=== PATIENT | male | born 1995 | race Caucasian/White ===

== ENCOUNTER 2019-12-18 05:50 | Emergency (ER) | payer BC, SELFPAY ==
[2019-12-18 05:56] VITALS: BP 124/55; PULSE 108; RESP 20; TEMP 37.2; O2SAT 100
--- NOTE | 2019-12-18 06:04 | ED.FEVER ---
HPI - Fever General Chief Complaint: Fever Stated Complaint: FEVER Time Seen by Provider: 12/18/19 06:03 History of Present Illness HPI Narrative: Fever, nausea, vomiting, diarrhea, and cough since yesterday. Sudden onset. Not able to tolerate any fluids or solid food. highest measured temp was 99.2. He does have mild associated epigastric pain and myalgias. No SOB, wheezing, weakness, dizziness. Related Data Allergies Allergy/AdvReac Type Severity Reaction Status Date / Time Penicillins Allergy Unknown Unknown Verified 12/18/19 06:00 Sulfa (Sulfonamide Allergy Unknown Unknown Verified 12/18/19 06:00 Antibiotics) Review of Systems Review of Systems: All systems reviewed & are unremarkable except as noted in HPI and below Constitutional: Constitutional: Reports chills, Reports fatigue and Reports fever(s) Eyes: Eyes: Denies change in vision ENT: Reports nasal congestion and Denies sore throat Cardiovascular: Cardiovascular: Denies chest pain Respiratory: Respiratory: Denies dyspnea Gastrointestinal: Gastrointestinal: Reports abdominal pain, Reports diarrhea, Reports nausea and Reports vomiting Genitourinary: Genitourinary: Denies hematuria and Denies dysuria Musculoskeletal: Musculoskeletal: Reports myalgias Neurologic: Denies headache(s), Denies numbness and Denies weakness [facility] Social History Social History Gender identity (if verbalized by the patient): Male Exam Const: General: no acute distress and alert; No healthy appearing Nutritional Appearance: thin Orientation/consciousness: patient oriented x3 HENMT: Ears: TM's normal bilaterally Face and sinus: normal facial exam Mouth: Yes dry mucous membranes Eyes: Conjunctivae: conjunctivae normal Pupils: Equal, round and reactive pupils present Neck: Neck: no lymphadenopathy Resp: Effort & Inspection: normal respiratory effort Auscultation: clear to auscultation bilaterally Cardio: Rate: regular rate Rhythm: regular rhythm GI: GI Palp: Yes Soft to palpation and No Tenderness to palpation present (GI) Skin: General skin exam: normal color Rashes: no rashes Wounds: no wounds Neuro: General: patient oriented x3, moves all extremities and no focal motor deficits Speech: normal speech Extrem: General: normal to inspection Course Vital Signs Vital signs: Vital Signs Temperature 37.2 C 12/18/19 05:56 Pulse Rate 108 H 12/18/19 05:56 Respiratory Rate 12/18/19 05:56 Blood Pressure 124/55 L 12/18/19 05:56 Pulse Oximetry 100 12/18/19 05:56 Temperature 37.2 C 12/18/19 05:56 Pulse Rate 108 H 12/18/19 05:56 Respiratory Rate 20 12/18/19 05:56 Blood Pressure 124/55 L 12/18/19 05:56 Pulse Oximetry 100 12/18/19 05:56 MDM - Fever MDM Narrative Medical decision making narrative: Symptoms are primarily GI, although he does complain of cough. Most likely is either influenza or viral gastroenteritis. Normal respiratory exam so pneumonia is unlikely. Will treat symptomatically and reassess. If positive for influenza he is within the time window where tamiflu could be helpful. Influenza screen negative. Most likely gastroenteritis. Feeling better and tolerating PO. Will discharge with zofran prescription. Differential Diagnosis Differential diagnosis: Likely gastroenteritis, community acquired pneumonia, viral infection and influenza Medical Records Attestation: I reviewed the patient's medical records. Lab Data Attestation: I reviewed the patient's lab results. Result diagrams: 12/18/19 07:02 12/18/19 07:02 Labs: Lab Results 12/18/19 12/18/19 12/18/19 Range/Units 07:02 07:02 07:16 WBC 11.9 H (4.5-10.0) K/mm3 RBC 5.26 (4.6-6.20) M/mm3 Hgb 15.0 (14.0-18.0) g/dL Hct 46.8 (42.0-52.0) % MCV 89.0 (80-100) fl MCH 28.5 (26-34) pg MCHC 32.1 (32-36) g/dl RDW 13.4 (11.5-14.5) % Plt
[2019-12-18] MEDS: SODIUM CHLORIDE 0.9% IV 1,000 ML 999 ML IV CONT ×2 (06:35→08:17)
[2019-12-18] MEDS: ONDANSETRON INJ 4 MG/2 ML VIAL IV PUSH (06:36)
[2019-12-18] MEDS: PANTOPRAZOLE SODIUM IV 40 MG VIAL IV PUSH (06:36)
[2019-12-18 07:12] LABS: Basophils Percent Auto 0.2 % (0.2-1.2); Eosinophils Percent Auto 0.1 % (0-4.4); Hematocrit 46.8 % (42.0-52.0); Immature Granulocyte Absolute 0.05 K/mm3 (0.00-0.031); Immature Granulocyte Percent A 0.4 % (0-0.5); Lymphocytes Absolute Auto 0.28 K/mm3 (0.9-3.2); Lymphocytes Percent Auto 2.4 % (18.3-44.2); Mean Corpuscular HGB Conc 32.1 g/dl (32-36); Mean Corpuscular Hemoglobin 28.5 pg (26-34); Mean Platelet Volume 10.4 fl (7.4-10.4); Monocytes Absolute Auto 0.6 K/mm3 (0.1-0.6); Neutrophils Absolute Auto 10.9 K/mm3 (1.3-6.7); Neutrophils Percent Auto 91.9 % (45.5-73.1); Platelet Count Result 296 k/mm3 (150-375); Red Blood Count 5.26 M/mm3 (4.6-6.20); Red Cell Distribution Width 13.4 % (11.5-14.5); White Blood Count 11.9 K/mm3 (4.5-10.0)
[2019-12-18 07:19] LABS: Alanine Aminotransferase 29 U/L (4-50); Albumin Level 4.2 g/dL (3.5-5.1); Alkaline Phosphatase 80 U/L (38-126); Aspartate Amino Transferase 22 U/L (17-59); Blood Urea Nitrogen 26 mg/dL (9-20); Calcium 8.7 mg/dL (8.4-10.2); Carbon Dioxide 28 mmol/L (22-30); Chloride 100 mmol/L (98-107); Estimated Glomerular Filt Rate > 60; Glucose 110 mg/dL (75-110); Lipase 34 U/L (23-300); Potassium 4.5 mmol/L (3.4-5.0); Sodium 136 mmol/L (137-145)
[2019-12-18 07:34] LABS: Add Urine Microscopic? YES; Appearance Urine Clear (Clear); Bilirubin Urine Negative (Negative); Blood Urine 1+ (Negative); Color Urine Yellow (Yellow); Glucose Urine UA Negative (Negative); Ketones Urine 1+ mg/dL (Negative); Leukocyte Esterase Ur Negative LEU/UL (Negative); Mucus Urine Heavy /lpf; Nitrate Urine Negative (Negative); Protein Urine 1+ mg/dL (Negative); Specific Grav Ur 1.031 (1.001-1.035); Squamous Epithelial Cell Urine Rare /hpf (Few); Urobilinogen Urine Negative mg/dL (<2.0); WBC Urine 0-3 /hpf
--- NOTE | 2019-12-31 09:41 | PC.NURSE ---
LATE ENTRY This note is being entered to document information to the patient's record. The following information was omitted on [12/18/2019], by [BRENDAN Arriola]. NS 1000mL infused with a stop time of 0920.
--- NOTE | 2020-01-02 13:42 | PC.NURSE ---
LATE ENTRY This note is being entered to document information to the patient's record. The following information was omitted on [12/18/2019], by [Kimi moulton RN]. 2nd bag of NS infused at 0930
== END 2019-12-18 09:15 | disposition home or self-care (01) ==
PROVIDERS: Emergency Provider Emergency Medicine
DX: K52.9 Noninfective gastroenteritis and colitis, unspecified (principal)
CPT/HCPCS: 36415; 80053; 81001; 83690; 85025; 87804; 96361; 96374; 96375; 99284; C9113; J2405; J7030

== ENCOUNTER 2022-08-08 17:39 | Emergency (ER) | payer SELFPAY ==
[2022-08-08 17:48] VITALS: BP 117/71; PULSE 83; RESP 16; TEMP 36.6; O2SAT 100
--- NOTE | 2022-08-08 18:09 | ED.GENADULT ---
HPI - General Adult General Chief complaint: Extremity Injury, Upper Stated complaint: L ARM/WRIST/HAND PAIN History of Present Illness HPI narrative: Patient is a 27-year-old male who presents to the [facility] via POV for an evaluation of a left hand injury that occurred 2 hours ago. 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 Patient also reports pain and swelling to the left hand and wrist. He reports his pain as constant and achy, throbbing, and sharp in nature. Pain improves when extremity is in the dependent position and worsens with movement. 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 Related Data Allergies Allergy/AdvReac Type Severity Reaction Status Date / Time Penicillins Allergy Unknown Unknown Verified 12/18/19 06:00 Sulfa (Sulfonamide Allergy Unknown Unknown Verified 12/18/19 06:00 Antibiotics) Review of Systems Review of Systems: Pertinent negatives: fever, chills, sweats, change in appetite, poor p.o. intake, malaise, calf tenderness, skin color changes, rash, warmth, numbness, tingling, loss of sensation, deformity, decreased range of motion, weakness, difficulty with ambulation/coordination, nausea, vomiting, lymphadenopathy, shortness of breath, chest pain, heart palpitations, and heart murmur. [facility] Social History Social History Gender identity (if verbalized by the patient): Male Exam Narrative: GENERAL: Well-appearing, well-nourished, and in no acute distress. HEAD: Normocephalic, atraumatic. NECK: Supple. No Lymphadenopathy or nuchal rigidity appreciated. CHEST: Bilateral lung palomo are clear to auscultation. No respiratory distress. No evidence of cough or pleuritic cp upon examination. HEART: Regular rate and rhythm. No murmur, gallop, or rub heard. EXTREMITIES: mild swelling and pain appreciated over dorsal aspect of left wrist. Mild left wrist pain elicited with all active/passive rom. No evidence of injury, decreased ROM, cyanosis, hematoma, laceration, abrasion, deformity, rash, or puncture. No evidence of point tenderness. No evidence of dislocation, ligament laxity, effusion, or pain at rest. Pulses palpable at 2+, strength 5/5, and cap refill < 3 seconds in affected extremity. DTRs normal. Gait normal. SKIN: Warm, dry, no rash. NEURO: No focal deficits. Alert and oriented x3. Course Course Level of Care: Express Care Visit Vital Signs Vital signs: Vital Signs Temperature 97.9 F 08/08/22 17:48 Pulse Rate 83 08/08/22 17:48 Respiratory Rate 16 08/08/22 17:48 Blood Pressure 117/71 08/08/22 17:48 Pulse Oximetry 100 08/08/22 17:48 Oxygen Delivery Room Air 08/08/22 17:48 Temperature 97.9 F 08/08/22 17:48 Pulse Rate 83 08/08/22 17:48 Respiratory Rate 16 08/08/22 17:48 Blood Pressure 117/71 08/08/22 17:48 Pulse Oximetry 100 08/08/22 17:48 Oxygen Delivery Room Air 08/08/22 17:48 Medical Decision Making Differential Diagnosis Differential Diagnosis: Sprain, strain, cellulitis, open fracture, closed fracture, gout Vital Signs Vital Signs: Vital Signs Temperature 97.9 F 08/08/22 17:48 Pulse Rate 83 08/08/22 17:48 Respiratory Rate 08/08/22 17:48 Blood Pressure 117/71 08/08/22 17:48 Pulse Oximetry 100 08/08/22 17:48 Oxygen Delivery Room Air 08/08/22 17:48 Temperature 97.9 F 08/08/22 17:48 Pulse Rate 83 08/08/22 17:48 Respiratory Rate 08/08/22 17:48 Blood Pressure 117/71 08/08/22 17:48 Pulse Oximetry 100 08/08/22 17:48 Oxygen Delivery Room Air 08/08/22 17:48 Reviewed Critical Care Time Critical Care Time Critical Care Time: No Discharge Plan Discharge Clinical Impression: Strain of left wrist Qualifiers: Encounter type: initial encounter Qualified Code(s): S66.912A - Strain of unspecified
== END 2022-08-08 18:23 | disposition home or self-care (01) ==
PROVIDERS: Emergency Provider Nurse Practitioner Family
DX: S66.912A Strain of unspecified muscle, fascia and tendon at wrist and hand level, left hand, initial encounter (principal); X58.XXXA Exposure to other specified factors, initial encounter; Y99.0 Civilian activity done for income or pay
CPT/HCPCS: 99212; G0463

== ENCOUNTER 2025-04-21 18:40 | Emergency (ER) | payer OTHER, SELFPAY ==
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
[2025-04-21 18:40] VITALS: BP 137/78; PULSE 97; RESP 18; TEMP 36.8; O2SAT 100
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
--- OUTSIDE RECORDS SUMMARY | 2025-04-21 19:37 | XMS_ITS | Referral Summary ---
Author Organization [address] [address] Care Team Providers Care Diamond Sizer And Sorter Name Role Phone No, Physician Primary Care Provider [phone] Encounters Date Type Department Care Team Description 01/24/2025 9:00 AM MULTI PURPOSE MACHINE OPERATOR Office Visit [facility] Care at [address] [address] Dina White NP Influenza A (Primary Dx) from Last 3 Months Allergies Active Allergy Reactions Criticality Noted Date Comments Penicillins Hives Medium 03/02/2023 Sulfa (Sulfonamide Antibiotics) Other (See comments) Low 03/02/2023 Reaction: Other Medications No known medications Active Problems Problem Noted Date Diagnosed Date 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 Social History Tobacco Use Types Packs/Day Years Used Date Smoking Tobacco: Never Assessed Sex and Gender Information Value Date Recorded Sex Assigned at Not on file Legal Sex Male 11:51 AM MULTI PURPOSE MACHINE OPERATOR Gender Identity Not on file Sexual Orientation Not on file Last Filed Vital Signs Vital Sign Reading Time Taken Comments Blood Pressure 126/78 01/24/2025 8:50 AM MULTI PURPOSE MACHINE OPERATOR Pulse 111 01/24/2025 8:50 AM MULTI PURPOSE MACHINE OPERATOR Temperature 38.1 C (100.5 F) 01/24/2025 8:50 AM MULTI PURPOSE MACHINE OPERATOR Respiratory Rate 20 01/24/2025 8:50 AM MULTI PURPOSE MACHINE OPERATOR Oxygen Saturation 99% 01/24/2025 8:50 AM MULTI PURPOSE MACHINE OPERATOR Inhaled Oxygen Concentration - - Weight 65.8 kg (145 lb) 01/24/2025 8:50 AM MULTI PURPOSE MACHINE OPERATOR Height 180.3 cm (5' 11) 03/02/2023 8:22 AM CDT Body Mass Index 20.22 03/02/2023 8:22 AM CDT Plan of Treatment Not on file Procedures Procedure Name Priority Date/Time Associated Diagnosis Comments POC INFLUENZA A/B, COVID-19 ANTIGEN Routine 01/24/2025 8:56 AM MULTI PURPOSE MACHINE OPERATOR Influenza A from Last 3 Months Results * (ABNORMAL) POC Influenza A/B, COVID-19 antigen (01/24/2025 8:56 AM MULTI PURPOSE MACHINE OPERATOR) Influenza A Ag, POC Positive(A) Negative [facility] Influenza B Ag, POC Negative Negative [facility] COVID-19 Ag POC Presumptive Negative Presumptive Negative, Invalid [facility] Nasal 01/24/2025 8:56 AM MULTI PURPOSE MACHINE OPERATOR Dina White NP POINT OF CARE TEST ORDERABLES Final Result [facility] [address] [place] [address], [facility] from Last 3 Months Insurance Care Teams Diamond Sizer And Sorter Relationship Specialty Start Date End Date No, Physician PCP - General 03/02/23
--- OUTSIDE RECORDS SUMMARY | 2025-04-21 19:37 | XMS_ITS | Clinical Summary ---
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 Social History Tobacco Use Types Packs/Day Years Used Date Smoking Tobacco: Never Smokeless Tobacco: Never Alcohol Use Standard Drinks/Week Comments Yes 0 (1 standard drink = 0.6 oz pur e alcohol) occasionally Sexually Active Control Partners Comments Yes Oral Contraceptive Sex and Gender Information Value Date Recorded Sex Assigned at Not on file Legal Sex Male 8:30 PM CDT Gender Identity Not on file Sexual Orientation Not on file Plan of Treatment Health Maintenance Due Date Last Done Comments Hepatitis C Virus (HCV) Screening 1995 Influenza Immunization (#1) 2024 SARS-COV-2 Immunization ( season) 2024 Respiratory Syncytial Virus (RSV) Immunization (Adult) (1 - 1-dose 75+ series) 2070 Hepatitis B Immunization Completed 995, 1995, 1995 DTaP/Tdap/Td Immunization Discontinued 2008, 02/05/1999, 04/26/1996, Additional history exists TdaP Immunization Completed 02/27/2009 Meningococcal Immunization (ACWY) Aged Out No longer eligible based on patient's age to complete this topic Pneumococcal Immunization Combined Aged Out No longer eligible based on patient's age to complete this topic Rotavirus Immunization Aged Out No lo nger eligible based on patient's age to complete this topic Goals Goal Patient Goal Type Associated Problems Recent Progress Patient-Stated? Author Patients will report less conflict in relationship with significant other. Behavioral Health Yes Teddy Hernandez, INTRANET DEVELOPER Note: Learn how to deal w/ disagreements better Insurance [facility] Care Teams Rn Gastroenterology Relationship Specialty Start Date End Date Provider, None ID PCP - General 08/30/19
--- OUTSIDE RECORDS SUMMARY | 2025-04-21 19:37 | XMS_ITS | Clinical Summary ---
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 Encounters Date Type Department Care Team Description 01/24/2025 9:00 AM ALMOND GRINDER Office Visit [facility] Care at [address] [address] Dina White NP Influenza A (Primary Dx) from Last 3 Months Social History Tobacco Use Types Packs/Day Years Used Date Smoking Tobacco: Never Assessed Sex and Gender Information Value Date Recorded Sex Assigned at Not on file Legal Sex Male 11:51 AM ALMOND GRINDER Gender Identity Not on file Sexual Orientation Not on file Obstetrics History Last Filed Vital Signs Vital Sign Reading Time Taken Comments Blood Pressure 126/78 01/24/2025 8:50 AM ALMOND GRINDER Pulse 111 01/24/2025 8:50 AM ALMOND GRINDER Temperature 38.1 C (100.5 F) 01/24/2025 8:50 AM ALMOND GRINDER Respiratory Rate 20 01/24/2025 8:50 AM ALMOND GRINDER Oxygen Saturation 99% 01/24/2025 8:50 AM ALMOND GRINDER Inhaled Oxygen Concentration - - Weight 65.8 kg (145 lb) 01/24/2025 8:50 AM ALMOND GRINDER Height 180.3 cm (5' 11) 03/02/2023 8:22 AM CDT Body Mass Index 20.22 03/02/2023 8:22 AM CDT Plan of Treatment Health Maintenance Due Date Last Done Comments Depression Screening 1995 Hepatitis C Screening 1995 Varicella Vaccines (2 of 2 - 2-dose childhood series) 1999 01/27/1996 Regular Well Visit/Exam 18-64 2013 DTaP/Tdap/Td Vaccine (7 - Td or Tdap) 02/27/2019 02/27/2009, 02/05/1999, 04/26/1996, Additional history exists Influenza Vaccine (Season Ended) 2025 Hepatitis B Screening Completed 1995 , 1995, 1995 HPV Vaccines Aged Out No longer eligi ble based on patient's age to complete this topic Pneumococcal vaccine <65 Aged Out No longer eligible based on patient's age to complete this topic Procedures Procedure Name Priority Date/Time Associated Diagnosis Comments POC INFLUENZA A/B, COVID-19 ANTIGEN Routine 01/24/2025 8:56 AM ALMOND GRINDER Influenza A from Last 3 Months Results * (ABNORMAL) POC Influenza A/B, COVID-19 antigen (01/24/2025 8:56 AM ALMOND GRINDER) Influenza A Ag, POC Positive(A) Negative [facility] Influenza B Ag, POC Negative [facility] COVID-19 Ag POC Presumptive Negative Presumptive Negative, Invalid [facility] Nasal 01/24/2025 8:56 AM ALMOND GRINDER Dina White NP POINT OF CARE TEST ORDERABLES Final Result Performing Organization Address City/State/[facility] Co de Phone Number [facility] [address] [place] [address], [facility] from Last 3 Months Insurance Care Teams Costume Mistress Relationship Specialty Start Date End Date No, Physician PCP - General 03/02/23
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
[2025-04-21 20:15] VITALS: BP 138/62; PULSE 86; RESP 16; O2SAT 98
[2025-04-21 21:31] VITALS: BP 128/62; PULSE 73; RESP 17; O2SAT 100
[2025-04-21 23:08] VITALS: BP 128/62; PULSE 73; RESP 17; O2SAT 100
== END 2025-04-21 21:30 | disposition home or self-care (01) ==
PROVIDERS: Emergency Provider Physician Assistant
DX: S01.112A Laceration without foreign body of left eyelid and periocular area, initial encounter (principal); S01.81XA Laceration without foreign body of other part of head, initial encounter; W20.8XXA Other cause of strike by thrown, projected or falling object, initial encounter
CPT/HCPCS: 12002; 70450; 70486; 72125; 99284; J2003

== ENCOUNTER 2025-04-29 11:47 | Emergency (ER) | payer OTHER, SELFPAY ==
--- OUTSIDE RECORDS SUMMARY | 2025-04-29 11:48 | XMS_ITS | Clinical Summary ---
Author Organization [facility] Address [address] [place] [address] Phone Care Team Providers Care Him Tech Name Role Phone Provider, None Primary Care [...] significant other. Behavioral Health Yes Teddy Hernandez, SODA ROOM OPERATOR Note: Learn how to deal w/ disagreements better Insurance [facility] Care Teams Him Tech Relationship Specialty Start Date End Date Provider, None [place] PCP - General 08/30/19
--- OUTSIDE RECORDS SUMMARY | 2025-04-29 11:48 | XMS_ITS | Referral Summary ---
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 Gender Identity Not on file Sexual Orientation Not on file Last Filed Vital Signs Vital Sign Reading Time Taken Comments Blood Pressure 126/78 01/24/2025 8:50 AM HOSPITAL FELLOW Pulse 111 01/24/2025 8:50 AM HOSPITAL FELLOW Temperature 38.1 C (100.5 F) 01/24/2025 8:50 AM HOSPITAL FELLOW Respiratory Rate 20 01/24/2025 8:50 AM HOSPITAL FELLOW Oxygen Saturation 99% 01/24/2025 8:50 AM HOSPITAL FELLOW Inhaled Oxygen Concentration - - Weight 65.8 kg (145 lb) 01/24/2025 8:50 AM HOSPITAL FELLOW Height 180.3 cm (5' 11) 03/02/2023 8:22 AM CDT Body Mass Index 20.22 03/02/2023 8:22 AM CDT Plan of Treatment Not on file Insurance [facility] Care Teams Fagot Heater Relationship Specialty Start Date End Date No, Physician PCP - General 03/02/23
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
--- OUTSIDE RECORDS SUMMARY | 2025-04-29 11:48 | XMS_ITS | Clinical Summary ---
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 Gender Identity Not on file Sexual Orientation Not on file Obstetrics History Last Filed Vital Signs Vital Sign Reading Time Taken Comments Blood Pressure 126/78 01/24/2025 8:50 AM MUSEUM ASSISTANT Pulse 111 01/24/2025 8:50 AM MUSEUM ASSISTANT Temperature 38.1 C (100.5 F) 01/24/2025 8:50 AM MUSEUM ASSISTANT Respiratory Rate 20 01/24/2025 8:50 AM MUSEUM ASSISTANT Oxygen Saturation 99% 01/24/2025 8:50 AM MUSEUM ASSISTANT Inhaled Oxygen Concentration - - Weight 65.8 kg (145 lb) 01/24/2025 8:50 AM MUSEUM ASSISTANT Height 180.3 cm (5' 11) 03/02/2023 8:22 [...] on patient's age to complete this topic Insurance [facility] Care Teams Rn Relief Charge Relationship Specialty Start Date End Date No, Physician PCP - General 03/02/23
[2025-04-29 11:59] VITALS: RESP 16; O2SAT 99
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
[2025-04-29 12:12] VITALS: BP 116/68; PULSE 88; RESP 16; TEMP 36.6; O2SAT 100
== END 2025-04-29 12:17 | disposition home or self-care (01) ==
PROVIDERS: Emergency Provider Emergency Medicine
DX: S01.91XD Laceration without foreign body of unspecified part of head, subsequent encounter (principal); W22.8XXD Striking against or struck by other objects, subsequent encounter
CPT/HCPCS: 15853; 99282